=== PATIENT | male | born 1935 | race Caucasian/White ===

== ENCOUNTER 2021-06-27 11:02 | Outpatient (CLI) | payer MEDICARE, BC | END 2021-06-27 11:03 | disposition home or self-care (01) | LOC: BICRAD 11:02 | PROVIDERS: ATTEND Neurological Surgery | DX: M47.26 Other spondylosis with radiculopathy, lumbar region (principal); M41.9 Scoliosis, unspecified | CPT/HCPCS: 72110 ==

== ENCOUNTER 2021-08-03 09:17 | Outpatient (CLI) | payer MEDICARE, BC | END 2021-08-03 09:18 | disposition home or self-care (01) | LOC: BICMRI 09:17 | PROVIDERS: ATTEND Anesthesiology Pain Medicine | DX: M48.062 Spinal stenosis, lumbar region with neurogenic claudication (principal); M51.27 Other intervertebral disc displacement, lumbosacral region; M48.07 Spinal stenosis, lumbosacral region | CPT/HCPCS: 72148 ==

== ENCOUNTER 2022-04-04 12:40 | Outpatient (CLI) | payer MEDICARE, BC ==
[~2022-04-04 12:40] MED LIST: Magnevist 469MG/ML 20 ML VIAL ONE
== END 2022-04-04 12:41 | disposition home or self-care (01) ==
LOC: TBSIIMAG 12:40
PROVIDERS: ATTEND Ophthalmology
DX: H40.1133 Primary open-angle glaucoma, bilateral, severe stage (principal)
CPT/HCPCS: 70553; 82565; A9579

== ENCOUNTER 2023-07-30 08:33 | Outpatient (CLI) | payer MEDICARE | END 2023-07-30 08:34 | disposition home or self-care (01) | LOC: SCSMRI 08:33 | PROVIDERS: ATTEND Ophthalmology | DX: D35.2 Benign neoplasm of pituitary gland (principal); H53.433 Sector or arcuate defects, bilateral; E23.6 Other disorders of pituitary gland | CPT/HCPCS: 70553 ==